=== PATIENT | female | born 1985 | race Caucasian/White ===

== ENCOUNTER 2018-07-13 19:56 | Emergency (ER) | END 2018-07-13 22:34 | disposition home or self-care (01) ==

== ENCOUNTER 2018-09-27 01:15 | Emergency (ER) | payer MEDICAID ==
[~2018-09-27] VITALS: Ht 160 cm; Wt 53.4 kg
[~2018-09-27 01:15] MED LIST: ASPI-650 PO; CEPH-443 PO; FLUC150T PO; NAPR-985 PO; NO MEDS
[2018-09-27 01:19] VITALS: Ht 160 cm; Wt 53.4 kg
[2018-09-27] MEDS ORDERED: ONDA4TAB14 PO (03:32)
[2018-09-27] MEDS ORDERED: ACET500C5 PO (03:32)
[2018-09-27] MEDS ORDERED: FAMO-96 PO (03:32)
[2018-09-27 03:53] VITALS: BP 110/70; PULSE 85; RESP 20
--- NOTE | 2018-09-27 04:01 | ERD ---
ER Documentation Chief Complaint Chief Complaint RLQ ABD PAIN WITH BLAOTING AND URINARY URGENCY [id number] HPI 33-year-old female presenting with abdominal pain and bloating exam. She took Tylenol with no alleviation. Denies any dysuria. Denies vomiting. Denies chest pain or shortness of breath. Denies other medical problems. NKDA. Surgical history is breast implants. Social history denies ROS All systems reviewed and are negative except as per history of present illness. Medications Home Meds Active Scripts Ondansetron (Ondansetron Odt) 4 Mg Tab.rapdis, 4 MG PO Q6H PRN for NAUSEA AND/OR VOMITING, #10 TAB Prov:JAMILA GODINEZ PA-C 09/27/18 Famotidine* (Pepcid*) 20 Mg Tablet, 20 MG PO BID for 4 Days, #30 TAB Prov:JAMILA GODINEZ PA-C 09/27/18 Acetaminophen* (Tylophen*) 500 Mg Capsule, 1 CAP PO Q6H PRN for PAIN AND OR ELEVATED TEMP, #20 CAP Prov:JAMILA GODINEZ PA-C 09/27/18 Naproxen* (Naprosyn*) 500 Mg Tablet, 500 MG PO BID PRN for PAIN AND/OR INFLAMMATION, #30 TAB Prov:YONATAN AUGUSTE PA-C 07/13/18 Fluconazole* (Diflucan*) 150 Mg Tablet, 150 MG PO ONCE, #1 TAB Prov:YONATAN AUGUSTE PA-C 07/13/18 Cephalexin* (Keflex*) 500 Mg Capsule, 500 MG PO QID for 5 Days, CAP Prov:YONATAN AUGUSTE PA-C 07/13/18 Reported Medications Aspirin (Aspirin) 81 Mg Tablet, 81 MG PO DAILY 02/17/12 [No Meds] No Conflict Check 04/17/11 Allergies Allergies: Coded Allergies: No Known Allergies (Verified Allergy, Mild, 09/27/18) PMhx/Soc History of Surgery: No Anesthesia Reaction: No Hx Neurological Disorder: No Hx Respiratory Disorders: No Hx Cardiac Disorders: No Hx Psychiatric Problems: No Hx Miscellaneous Medical Probl: No Hx Alcohol Use: No Hx Substance Use: No Hx Tobacco Use: No FmHx Family History: No diabetes, No coronary disease, No other Physical Exam Vitals Vital Signs Date Temp Pulse Resp B/P (MAP) Pulse Ox O2 O2 Flow FiO2 Time Delivery Rate 09/27/18 98.0 85 20 110/70 98 Room Air 03:53 (83) 09/27/18 97.9 82 19 109/69 98 01:19 (82) Physical Exam GENERAL: The patient is well-appearing, well-nourished, in no acute distress CHEST: Clear to auscultation bilaterally. There are no rales, wheezes or rhonchi. HEART: Regular rate and rhythm. No murmurs, clicks, rubs or gallops. No S3 or S4. ABDOMEN:Soft, nontender and nondistended. Good bowel sounds. No rebound or guarding. No gross peritonitis. No gross organomegaly or masses. No Gale sign or McBurney point tenderness. BACK: No midline or flank tenderness. Result Diagram: 09/27/18 0245 09/27/18 0245 Results 24 hrs Laboratory Tests Test 09/27/18 02:45 09/27/18 02:47 09/27/18 02:49 White Blood Count 6.2 10^3/ul Red Blood Count 4.35 10^6/ul Hemoglobin 13.2 g/dl Hematocrit 39.7 % Mean Corpuscular Volume 91.3 fl Mean Corpuscular Hemoglobin 30.3 pg Mean Corpuscular 33.2 g/dl Hemoglobin Concent Red Cell Distribution Width 12.4 % Platelet Count 237 10^3/UL Mean Platelet Volume 10.4 fl Immature Granulocytes % 0.200 % Neutrophils % 44.8 % Lymphocytes % 46.1 % Monocytes % 6.9 % Eosinophils % 1.8 % Basophils % 0.2 % Nucleated Red Blood Cells % 0.0 /100WBC Immature Granulocytes # 0.010 10^3/ul Neutrophils # 2.8 10^3/ul Lymphocytes # 2.9 10^3/ul Monocytes # 0.4 10^3/ul Eosinophils # 0.1 10^3/ul Basophils # 0.0 10^3/ul Nucleated Red Blood Cells # 0.0 10^3/ul Sodium Level 144 mmol/L Potassium Level 4.0 mmol/L Chloride Level 104 mmol/L Carbon Dioxide Level 28 mmol/L Anion Gap 12 Blood Urea Nitrogen 20 mg/dl Creatinine 0.59 mg/dl Est Glomerular Filtrat > 60 mL/min Rate mL/min Glucose Level 91 mg/dl Calcium Level 9.3 mg/dl Total Bilirubin 0.0 mg/dl Direct Bilirubin 0.00 mg/dl Indirect Bilirubin 0.0 mg/dl Aspartate Amino Transf (AST/SGOT) 29 IU/L Alanine 40 IU/L Aminotransferase (ALT/SGPT) Alkaline Phosphatase 52 IU/L Total Protein 7.4 g/dl Albumin 4.3 g/dl Globulin 3.10 g/dl Albumin/Globulin Ratio 1.38 Lipase 159 U/L Urine Color YELLOW Urine Clarity CLOUDY Urine pH 7.0 Urine Specific King 1.012 Urine Ketones NEGATIVE mg/dL Urine Nitrite NEGATIVE mg/dL Urine Bilirubin NEGATIVE mg/dL Urine Urobilinogen NEGATIVE mg/dL Urine Leukocyte Esterase TRACE Liya/ul Urine Microscopic RBC 1 /HPF Urine Microscopic WBC 5 /HPF Urine Squamous Epithelial Cells FEW /HPF Urine Amorphous Crystals FEW /HPF Urine Bacteria FEW /HPF Urine Hemoglobin 1+ mg/dL Urine Glucose NEGATIVE mg/dL Urine Total Protein NEGATIVE mg/dl POC Beta HCG, Qualitative NEGATIVE Procedures/MDM DIAGNOSTIC IMAGING REPORT Patient: JUAN LOPES : 1985 Age: 33 Sex: F MR #: [id number] DOS: 09/27/18 0233 Ordering MD: JELENA GODINEZ PA-C Location: [facility] Room/Bed: PROCEDURE: CT Abdomen and Pelvis without contrast. CLINICAL INDICATION: The TECHNIQUE: CT scan of the abdomen and pelvis without contrast was performed on a multi-detector high-resolution CT scanner. No intravenous contrast was administered. Coronal and sagittal reformatted images were obtained from the axial source images. The total exam CTDI equals 6 mGy and the total exam DLP equals 318 mGy-cm. DICOM images are available. One or more of the following dose reduction techniques were utilized: 1.) Automated exposure control 2.) Adjustment of the mA +/- kV according to patient's size 3.) Use of iterative reconstruction technique. COMPARISON: None. FINDINGS: Imaged portions of the chest are unremarkable. The liver, pancreas, and spleen are unremarkable. The gallbladder is within normal limits. No adrenal nodules are seen. There is no evidence for obstructive uropathy. There is an intrauterine device in place. There are no suspicious adnexal lesions. The bladder is unremarkable. There is no evidence for bowel obstruction. The appendix is normal in caliber. There is a moderate amount of stool in the colon. There is no ascites. There is no intra-abdominal free air. There is no mes enteric, retroperitoneal or pelvic sidewall lymphadenopathy. The abdominal aorta is normal in caliber. Visualized osseous structures are intact. IMPRESSION: No evidence for obstructive uropathy. Normal-caliber appendix. Moderate amount of stool in the colon. DIAGNOSTIC IMAGING REPORT Patient: JUAN LOPES : 1985 Age: 33 Sex: F MR #: [id number] DOS: 09/27/18 0233 Ordering MD: JELENA GODINEZ PA-C Location: [facility] Room/Bed: PROCEDURE: US Pelvis. CLINICAL INDICATION: Abdominal Pain TECHNIQUE: Multiple sonographic images of the pelvis were obtained utilizing a transabdominal and endovaginal technique. The images were reviewed on a PACS workstation. COMPARISON: None. FINDINGS: The uterus is visualized and measures 6.8 x 3.6 x 4.2. Endometrial complex measures 2 mm thickness and appears normal as visualized. An IUD is in place and appears to be in satisfactory position. The right ovary has a normal echotexture and measures 2.9 x 1.7 x 2.1 cm. The left ovary has a normal echotexture and measures 3.3 x 1.9 x 2.6 cm. Both ovaries demonstrate normal vascularity. No adnexal lesions identified. No significant pelvic free fluid. IMPRESSION: Unremarkable pelvic ultrasound. MDM: 33-year-old female presenting with diffuse abdominal pain. Patient's abd ominal exam is non-concerning and imaging with blood work is stable. I have low suspicion for acute abdominal emergency. I have low suspicion for pelvic emergency. Patient is discharged with strict ER precautions and told to follow- up with primary care within 1-2 days for close evaluation. Patient is told if symptoms change or worsen to immediately return to the ER. All questions answered at discharge Departure Diagnosis: Primary Impression: Abdominal pain Condition: Stable Patient Instructions: Abdominal Pain Referrals: COMM[facility]ITY CLIN[facility] YOU HAVE RECEIVED A MEDICAL SCREENING EXAM AND THE RESULTS INDICATE THAT YOU DO NOT HAVE A CONDITION THAT REQUIRES URGENT TREATMENT IN THE EMERGENCY DEPARTMENT. FURTHER EVALUATION AND TREATMENT OF YOUR CONDITION CAN WAIT UNTIL YOU ARE SEEN IN YOUR DOCTORS OFFICE WITHIN THE NEXT 1-2 DAYS. IT IS YOUR RESPONSIBILITY TO MAKE AN APPOINTMENT FOR FOLOW-UP CARE. IF YOU HAVE A PRIMARY DOCTOR --you should call your primary doctor and schedule an appointment IF YOU DO NOT HAVE A PRIMARY DOCTOR YOU CAN CALL OUR PHYSICIAN REFERRAL HOTLINE AT IF YOU CAN NOT AFFORD TO SEE A PHYSICIAN YOU CAN CHOSE FROM THE FOLLOWING [facility] [address] [facility] [address] [facility] [facility] [address] [facility] [address] [facility] [address] [facility]. [address] Additional Instructions: FOLLOW UP WITH YOUR PRIMARY CARE PHYSICIAN TOMORROW.Return to this facility if you are not improving as expected. JAMILA GODINEZ PA-C Sep 27, 2018 04:01
== END 2018-09-27 03:54 | disposition home or self-care (01) ==
LOC: FTE 01:15
DX: R10.31 Right lower quadrant pain (principal); R10.2 Pelvic and perineal pain; Z79.82 Long term (current) use of aspirin
CPT/HCPCS: 36415; 74176; 76856; 80053; 81001; 81025; 83690; 85025; Z7502